=== PATIENT | male | born 1970 | race Caucasian/White ===

== ENCOUNTER 2016-05-27 08:49 | Outpatient (RCR) | payer OTHER ==
[~2016-05-27 08:49] MED LIST: COLACE 100100 MG/CAP PO; NO HOME MEDICATIONS; TRAMADOL50 MG PO
== END 2016-08-17 ==
LOC: WSOH
DX: S39.012S Strain of muscle, fascia and tendon of lower back, sequela (principal); Y99.0 Civilian activity done for income or pay

== ENCOUNTER 2019-11-01 01:04 | Emergency (ER) | payer OTHER ==
[~2019-11-01] VITALS: Ht 162.6 cm; Wt 65.9 kg
[2019-11-01 01:09] VITALS: TEMP 98.1
[2019-11-01] MEDS ORDERED: ATIVAN 1MG T1 MG/TAB PO (02:23)
[2019-11-01 03:25] VITALS: BP 127/83; PULSE 69
== END 2019-11-01 03:25 | disposition home or self-care (01) ==
LOC: COL.ER 01:04
DX: F41.9 Anxiety disorder, unspecified (principal)

== ENCOUNTER → 2019-12-25 | Outpatient (CLI) | payer OTHER ==
[~2019-12-25] MED LIST changes: +ATIVAN 1MG T1 MG/TAB PO
== END ==
LOC: COL.CARD 08:15
DX: R00.2 Palpitations (principal); R06.09 Other forms of dyspnea

== ENCOUNTER 2020-08-16 02:49 | Emergency (ER) | payer SELFPAY ==
[~2020-08-16] VITALS: Ht 165.1 cm; Wt 75.0 kg
[2020-08-16 03:00] VITALS: TEMP 98.8
[2020-08-16] MEDS ORDERED: VENTOLIN0.09 MG IH (03:46)
[2020-08-16] MEDS ORDERED: DECADRON6 MG PO (03:46)
[2020-08-16] MEDS ORDERED: TYLENOL 325MG325 MG PO (03:47)
[2020-08-16 04:05] VITALS: BP 138/77; PULSE 85
== END 2020-08-16 04:05 | disposition home or self-care (01) ==
LOC: COL.ER 02:49
DX: U07.1 COVID-19 (principal); F41.9 Anxiety disorder, unspecified

== ENCOUNTER 2024-01-13 00:50 | Emergency (ER) | payer SELFPAY ==
[~2024-01-13] VITALS: Ht 162.6 cm; Wt 70.5 kg
[~2024-01-13 00:50] MED LIST changes: +DECADRON6 MG PO; +DOXYCYCLINE HY100 MG PO; +TYLENOL 325MG325 MG PO; +VENTOLIN0.09 MG IH
[2024-01-13 01:00] VITALS: TEMP 97.7
[2024-01-13] MEDS ORDERED: Ondansetron 4 MG/2 ML VIAL IV ONE (01:30)
[2024-01-13] MEDS ORDERED: LR 1,000 ML IV ONE (01:30)
[2024-01-13 01:46] LABS: BASO # 0.1 K/mm3 (0.0-0.2); BASO % 0.9 % (0.0-2.0); EOS # 0.3 K/mm3 (0.0-0.7); EOS % 4.6 % (0.0-4.0); GRAN # 3.7 K/mm3 (1.4-6.5); GRAN % 55.3 % (42.2-75.2); HEMATOCRIT 47.2 % (42.0-52.0); HEMOGLOBIN 16.1 g/dl (13.5-18.0); LYMPH # 1.7 K/mm3 (1.2-3.4); LYMPH % 25.6 % (20.0-51.0); MEAN CELL VOLUME 93 fl (80.0-100.0); MEAN CORPUSCULAR HEMOGLOBIN 32 pg (27-31); MEAN CORPUSCULAR HGB CONC 34 g/dl (33.0-37.0); MEAN PLATELET VOLUME 12.1 fl (7.4-10.4); MONO # 0.9 K/mm3 (0.1-0.6); MONO % 13.5 % (1.7-9.3); PLATELET COUNT 195 K/mm3 (130-400); REDCELL DISTRIBUTION WIDTH-CV 13.2 % (11.5-14.5)
[2024-01-13 01:51] LABS: PROTHROMBIN TIME 10.8 SECONDS (9.7-12.8)
[2024-01-13 01:53] LABS: PARTIAL THROMBOPLASTIN TIME 33.6 SECONDS (26.0-37.0)
[2024-01-13 02:06] LABS: ALANINE AMINOTRANSFERASE 35 U/L (0-55); ALBUMIN 4.2 g/dL (3.5-5.0); ALKALINE PHOSPHATASE 99 U/L (40-150); ANION GAP 9 mmol/L (7-16); AST,SGOT 25 U/L (5-34); BILIRUBIN,TOTAL 0.3 mg/dL (0.2-1.2); BLOOD UREA NITROGEN 15 mg/dL (8-26); CALCIUM 9.5 mg/dL (8.4-10.2); CHLORIDE 109 mEq/L (98-107); CREATININE, serum 0.91 mg/dL (0.72-1.25); GLUCOSE 122 mg/dL (70-99); LIPASE 39 U/L (8-78); POTASSIUM 3.5 mEq/L (3.5-4.5); SODIUM 141 mEq/L (136-145); TOTAL PROTEIN 7.7 g/dl (6.2-8.1)
[2024-01-13 02:12] LABS: TROPONIN-I < 0.010 ng/mL (0.00-0.033)
[2024-01-13] MEDS ORDERED: Iohexol 300 - 100 ML VIAL IV ONE (02:47)
[2024-01-13] MEDS ORDERED: NS 60 ML IV ONE (02:48)
[2024-01-13 03:38] VITALS: BP 141/68; PULSE 72
== END 2024-01-13 03:38 | disposition home or self-care (01) ==
LOC: COL.ER 00:50
PROVIDERS: Emergency Medicine
DX: R51.9 Headache, unspecified (principal); R11.0 Nausea
CPT/HCPCS: J2405; J7120; Q9967